=== PATIENT | female | born 1970 | race Caucasian/White ===

== ENCOUNTER 2016-05-17 13:05 | Emergency (ER) | payer OTHER ==
[2016-05-17] MEDS ORDERED: SODIUM CHLORIDE 1,000 ML IV SCH (14:00)
[2016-05-17 14:02] VITALS: BP 131/89; PULSE 67; TEMP 98.9; BMI 28.5
--- NOTE | 2016-05-17 14:13 | PDOC ---
History of Present Illness <Rolo Linder - Last Filed: 05/17/16 17:56> - History of Present Illness Initial Comments: 05/17/16 14:09 46-year-old female with a past medical history of appendectomy 2 years ago, chronic neck and back issues due to disc disease, and GERD Patient is complaining of a few days of feeling tired and lightheaded She then developed some right flank area pain rating around to her right abdomen , which she describes as a burning pain She denies any fever She denies any nausea vomiting or diarrhea She denies any cough or sputum She denies any urgency or frequency, but c/o sl dysuria She states that she did have one episode of diarrhea on Wednesday, but this has resolved She states the pain is not changed by musculoskeletal maneuvers She states that the pain is been pretty much constant for the past few days She denies any left-sided pain She denies any other complaints at this time, and the remainder of the review of systems is negative <Mayra Parnell - Last Filed: 05/19/16 07:43> - General Chief Complaint: Pain Stated Complaint: ABD, BACK PAIN Time Seen by Provider: 05/17/16 13:12 Past History <Rolo Linder - Last Filed: 05/17/16 17:56> - Past Medical History Thyroid Disease: No Other medical history: degenerative disc disease - Surgical History Appendectomy: Yes - Psycho/Social/Smoking Cessation Hx Anxiety: No Suicidal Ideation: No Smoking Status: No Smoking History: Never smoked Have you smoked in the past 12 months: Yes Number of Cigarettes Smoked Daily: 10 Information on smoking cessation initiated: Yes Hx Alcohol Use: No <Mayra Parnell - Last Filed: 05/19/16 07:43> - Past Medical History Allergies/Adverse Reactions: Allergies Allergy/AdvReac Type Severity Reaction Status Date / Time latex Allergy Verified 05/17/16 15:45 No Known Drug Allergies Allergy Verified 05/17/16 15:45 Home Medications: Ambulatory Orders Levofloxacin [Levaquin -] 500 mg PO DAILY #10 tablet 05/17/16 Review of Systems - Review of Systems Able to Perform ROS?: Yes Comments:: 05/17/16 14:10 12 point review of systems is as per history of present illness and otherwise negative <Mayra Parnell - Last Filed: 05/19/16 07:43> *Physical Exam - Vital Signs Last Vital Signs Temp Pulse Resp BP Pulse Ox 98.9 F 67 18 131/89 100 05/17/16 13:05 05/17/16 13:05 05/17/16 13:05 05/17/16 14:10 05/17/16 13:05 <Rolo Linder - Last Filed: 05/17/16 17:56> - Vital Signs Last Vital Signs Temp Pulse Resp BP Pulse Ox 98.9 F 67 18 131/89 100 05/17/16 13:05 05/17/16 13:05 05/17/16 13:05 05/17/16 13:05 05/17/16 13:05 - Physical Exam Comments: 05/17/16 14:11 Physical exam Last Vital Signs Temp Pulse Resp BP Pulse Ox 98.9 F 67 18 131/89 100 05/17/16 13:05 05/17/16 13:05 05/17/16 13:05 05/17/16 13:05 05/17/16 13:05 GENERAL: The patient is awake, alert, and fully oriented, and in no apparent distress. HEAD: Normal with no signs of trauma. EYES: sclera anicteric, conjunctiva are normal. ENT: Moist mucous membranes. NECK: Normal range of motion, supple LUNGS: Breath sounds equal, clear to auscultation bilaterally. No wheezes, and no crackles. HEART: Regular rate and rhythm, normal S1 and S2 without murmur, rub or gallop. ABDOMEN: There is one small skin lesion on the right flank area, but no evidence of shingles There is plus minus CVA tenderness on the right There is no left CVA tenderness There is diffuse right sided abdominal tenderness, without guarding or rebound There is no left-sided abdominal tenderness Normal bowel sounds are present in all quadrants EXTREMITIES: Normal range of motion, no edema. No clubbing or cyanosis. No cords, erythema, or tenderness. NEUROLOGICAL: Cranial nerves II through XII grossly intact. Normal speech, normal gait. PSYCH: Normal mood, normal affect. SKIN: Warm, Dry, normal turgor, no rashes or lesions noted. <Mayra Parnell - Last Filed: 05/19/16 07:43> ED Treatment Course - LABORATORY CBC & Chemistry Diagram: 05/17/16 14:10 05/17/16 14:10 - ADDITIONAL ORDERS Additional order review: Laboratory Results 05/17/16 05/17/16 05/17/16 14:10 14:10 14:10 Sodium 136 Potassium 3.6 Chloride 105 Carbon Dioxide 26 Anion Gap 5 L BUN 12 Creatinine 0.7 Creat Clearance w eGFR > 60 Random Glucose 107 H Calcium 9.0 Total Bilirubin 1.1 H AST 14 ALT 13 Alkaline Phosphatase 69 Total Protein 7.1 Albumin 4.2 Lipase 21 L Urine Color Yellow Urine Appearance Clear Urine pH 6.5 Ur Specific [place] 1.015 Urine Protein Negative Urine Glucose (UA) Negative Urine Ketones Negative Urine Blood 3+ H Urine Nitrite Negative Urine Bilirubin Negative Urine Urobilinogen 0.2 e.u/dl Ur Leukocyte Esterase Negative Urine RBC 10-20 Urine WBC 3-5 Ur Epithelial Cells 3+ Urine Bacteria 2+ Urine Casts Few Hyaline Casts 1+ Urine HCG, Qual Negative 05/17/16 14:10 RBC 4.67 MCV 90.9 MCHC 33.9 RDW 12.2 MPV 7.7 - RADIOLOGY Radiology Studies Ordered: 05/17/16 17:56 EXAM: CT ABDOMEN AND PELVIS WITH CONTRAST Small cystic foci right kidney. Heterogeneous right renal parenchyma, suspect artifact from adjacent oral contrast in colon more likely than pyelonephritis, but correlate clinically. No bowel obstruction, colitis, or free air. Normal short appendix versus appendiceal stump. Few diverticula colon. Unremarkable pancreas and gallbladder. Small physiologic free fluid cul-de-sac. Subcentimeter hepatic cysts or hemangiomas. Small umbilical hernia containing fat. Leiomyomatous uterus. THIS DOCUMENT HAS BEEN ELECTRONICALLY SIGNED Kaley Philippe M.D. 05/17/2016 17: 52 EST - Medications Given in the ED: ED Medications Discontinued Medications Generic Name Dose Route Start Last Admin Trade Name Freq PRN Reason Stop Dose Admin Ketorolac Tromethamine 30 mg 05/17/16 15:48 05/17/16 16:05 Toradol Injection - IVPUSH 05/17/16 15:49 30 mg ONCE ONE Administration <Rolo Linder - Last Filed: 05/17/16 17:56> - LABORATORY CBC & Chemistry Diagram: 05/17/16 14:10 05/17/16 14:10 - RADIOLOGY Radiology Studies Ordered: Category Date Time Status ABDOMEN & PELVIS CT WITH CONTR [CT] Stat CT Scan 05/17/16 13:54 Ordered CHEST PA & LAT [RAD] Stat Radiology 05/17/16 13:50 Taken <Mayra Parnell - Last Filed: 05/19/16 07:43> Medical Decision Making - Medical Decision Making 05/17/16 15:56 Laboratory Results - last 24 hr 05/17/16 05/17/16 05/17/16 14:10 14:10 14:10 WBC 9.3 RBC 4.67 Hgb 14.4 Hct 42.5 MCV 90.9 MCHC 33.9 RDW 12.2 Plt Count 243 D MPV 7.7 Sodium 136 Potassium 3.6 Chloride 105 Carbon Dioxide 26 Anion Gap 5 L BUN 12 Creatinine 0.7 Creat Clearance w eGFR > 60 Random Glucose 107 H Calcium 9.0 Total Bilirubin 1.1 H AST 14 ALT 13 Alkaline Phosphatase 69 Total Protein 7.1 Albumin 4.2 Lipase 21 L Urine Color Yellow Urine Appearance Clear Urine pH 6.5 Ur Specific [place] 1.015 Urine Protein Negative Urine Glucose (UA) Negative Urine Ketones Negative Urine Blood 3+ H Urine Nitrite Negative Urine Bilirubin Negative Urine Urobilinogen 0.2 e.u/dl Ur Leukocyte Esterase Negative Urine RBC 10-20 Urine WBC 3-5 Ur Epithelial Cells 3+ Urine Bacteria 2+ Urine Casts Few Hyaline Casts 1+ Urine HCG, Qual 05/17/16 14:10 WBC RBC Hgb Hct MCV MCHC RDW Plt Count MPV Sodium Potassium Chloride Carbon Dioxide Anion Gap BUN Creatinine Creat Clearance w eGFR Random Glucose Calcium Total Bilirubin AST ALT Alkaline Phosphatase Total Protein Albumin Lipase Urine Color Urine Appearance Urine pH Ur Specific [place] Urine Protein Urine Glucose (UA) Urine Ketones Urine Blood Urine Nitrite Urine Bilirubin Urine Urobilinogen Ur Leukocyte Esterase Urine RBC Urine WBC Ur Epithelial Cells Urine Bacteria Urine Casts Hyaline Casts Urine HCG, Qual Negative 05/17/16 18:37 CT scan of the abdomen and pelvis with oral and IV contrast - this is an IOC reading Heterogeneous right renal parenchyma, suspect artifact from adjacent oral contrast in the colon more likely than pyelonephritis, but correlate clinically Fibroid uterus Otherwise negative Impression-Flank pain, UTI, cannot rule out pyelonephritis Patient given 1 dose of Levaquin IV in the ER, urine culture sent, will discharge on antibiotics 05/19/16 07:[address] scan of the abdomen and pelvis as read by Dr. 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 <Rolo Linder - Last Filed: 05/17/16 17:56> <Mayra Parnell - Last Filed: 05/19/16 07:43> Diagnosis at time of Disposition: UTI (urinary tract infection), Flank pain - Discharge Dispostion Disposition: HOME Condition at time of disposition: Improved - Prescriptions Prescriptions: Levofloxacin [Levaquin -] 500 mg PO DAILY #10 tablet - Patient Instructions Printed Discharge Instructions: Urinary Tract Infection, DI for Kidney Infection Additional Instructions: Levaquin-one pill daily-start tomorrow, as you received her first dose intravenously here Increase fluid intake, and drink plenty of fluids Tylenol or Motrin for pain Followup with your primary care physician in 24-48 hours Return immediately if you worsen in any way Take your medications as directed - Post Discharge Activity Work/School Note: Back to Work
[2016-05-17 14:32] LABS: PH,URINE 6.5 (4.5-8); URINE APPEARANCE Clear; URINE BILIRUBIN Negative (NEGATIVE); URINE GLUCOSE (UA) Negative (NEGATIVE); URINE KETONE Negative (NEGATIVE); URINE LEUK ESTERASE Negative (NEGATIVE); URINE NITRITE Negative (NEGATIVE); URINE PROTEIN Negative (NEGATIVE); URINE UROBILINOGEN 0.2 E.U/dl (0.2-1.0)
[2016-05-17 14:36] LABS: MCH 30.8 pg (25.7-33.7); MCHC 33.9 g/dl (32.0-36.0); MEAN CELL VOLUME 90.9 fl (80-96); MEAN PLT VOLUME 7.7 fl (7.5-11.1); PLATELET COUNT 243 K/MM3 (134-434); RDW 12.2 % (11.6-15.6); WHITE BLOOD COUNT 9.3 K/mm3 (4.0-10.0)
[2016-05-17 14:41] LABS: URINE BLOOD 3+ (NEGATIVE); URINE COLOR YELLOW
[2016-05-17 14:48] LABS: ALBUMIN 4.2 g/dl (3.5-5.0); ALK PHOS 69 U/L (32-92); ANION GAP 5 (8-16); BILIRUBIN,TOTAL 1.1 mg/dl (0.2-1.0); CO2 26 mmol/L (22-28); CREATININE 0.7 mg/dl (0.6-1.3); GLUCOSE,RANDOM 107 mg/dl (74-106); SGOT/AST 14 U/L (10-42); SGPT/ALT 13 U/L (10-40); TOT PROT 7.1 g/dl (6.4-8.3)
[2016-05-17 15:45] LABS: URINE BACTERIA 2+ /hpf (NEGATIVE); URINE HYALINE CAST 1+ /lpf
[2016-05-17] MEDS ORDERED: KETOROLAC TROMETHAMINE 30 MG/1 ML VIAL IVPUSH ONE (15:48)
[2016-05-17] MEDS ORDERED: KETOROLAC TROMETHAMINE 30 MG/1 ML VIAL ONE (15:56)
[2016-05-17] MEDS ORDERED: LEVOFLOXACIN 500 MG IVPB 100 ML IVPB ONE ×2 (18:01→18:04)
== END 2016-05-17 19:05 | disposition home or self-care (01) ==
LOC: FER 13:05
PROC: 3E03329 Introduction of Other Anti-infective into Peripheral Vein, Percutaneous Approach (ICD-10-PCS; principal; 2016-05-17)
PROC: 3E033GC Introduction of Other Therapeutic Substance into Peripheral Vein, Percutaneous Approach (ICD-10-PCS; 2016-05-17)
PROC: 3E0337Z Introduction of Electrolytic and Water Balance Substance into Peripheral Vein, Percutaneous Approach (ICD-10-PCS; 2016-05-17)
DX: N39.0 Urinary tract infection, site not specified (principal); R10.31 Right lower quadrant pain; G89.29 Other chronic pain; K21.9 Gastro-esophageal reflux disease without esophagitis; F17.210 Nicotine dependence, cigarettes, uncomplicated
CPT/HCPCS: 36415; 71020-TC; 74177-TC; 80053; 81003; 81015; 83690; 84703; 85027; 87086; 99285-25

== ENCOUNTER 2021-12-15 06:20 | Emergency (ER) | payer BC, OTHER ==
[2021-12-15 06:32] VITALS: BP 147/85; PULSE 66; RESP 16; TEMP 97.9; BMI 29.2
[2021-12-15] MEDS ORDERED: IBUPROFEN 600 MG TABLET (FP) PO ONE (07:21)
== END 2021-12-15 08:33 | disposition home or self-care (01) ==
LOC: FER 06:20
DX: S99.911A Unspecified injury of right ankle, initial encounter (principal); X50.0XXA Overexertion from strenuous movement or load, initial encounter
CPT/HCPCS: 73610-TC-RT-FY; 73630-TC-RT-FY; 99284-25

== ENCOUNTER 2023-05-12 13:29 | Emergency (ER) | payer BC ==
[2023-05-12 13:43] VITALS: BP 109/78; PULSE 89; RESP 20; TEMP 99; BMI 30.2
[2023-05-12] MEDS: ALBUTEROL SO4 0.083% IH SOL 2.5 MG/3 ML VIAL.NEB. NEB STA (14:00)
[2023-05-12] MEDS ORDERED: ALBUTEROL SO4 2.5/IPRATROPIUM 0.5 INH SOL 3 ML VIAL.NEB. NEB ONE (14:07)
[2023-05-12] MEDS: ALBUTEROL SO4 HFA INHALER IH ONE (15:24)
[2023-05-12] MEDS ORDERED: ALBUTEROL SO4 HFA INHALER IH ONE (15:24)
== END 2023-05-12 15:55 | disposition home or self-care (01) ==
LOC: FER 13:29
PROC: 3E0F7GC Introduction of Other Therapeutic Substance into Respiratory Tract, Via Natural or Artificial Opening (ICD-10-PCS; principal; 2023-05-12)
DX: R05.9 Cough, unspecified (principal); R09.81 Nasal congestion; Z20.822 Contact with and (suspected) exposure to COVID-19
CPT/HCPCS: 0241U-QW; 99283-25

== ENCOUNTER 2023-11-08 08:48 | Emergency (ER) | payer BC ==
[2023-11-08 09:17] VITALS: TEMP 99.9; BMI 30.2
[2023-11-08] MEDS: SODIUM CHLORIDE 0.9% 500 ML INFUS.BAG IV ONE (09:42)
[2023-11-08] MEDS: ACETAMINOPHEN 1000 MG/100 ML BAG IVPB ONE (09:43)
[2023-11-08] MEDS: ONDANSETRON 4 MG/2 ML VIAL IVPUSH ONE (09:49)
[2023-11-08] MEDS ORDERED: ONDANSETRON 4 MG/2 ML VIAL ONE (09:50)
[2023-11-08] MEDS ORDERED: ACETAMINOPHEN INJECTION 100 ML ONE (09:50)
[2023-11-08 10:02] LABS: HEMATOCRIT 39.8 % (32.4-45.2); HEMOGLOBIN 13.1 G/dL (10.7-15.3); MCH 29.8 pg (25.7-33.7); MCHC 32.8 g/dl (32.0-36.0); MEAN CELL VOLUME 90.9 fl (80-96); MEAN PLT VOLUME 7.9 fl (7.5-11.1); PLATELET COUNT 162.3 10^3/uL (134-434); RBC 4.38 10^6/uL (3.60-5.2); RDW 13.9 % (11.6-15.6); WHITE BLOOD COUNT 8.6 10^3/uL (4.0-10.8)
[2023-11-08 10:05] LABS: HCG,QUALITATIVE URINE Negative
[2023-11-08 10:18] LABS: ALK PHOS 91 U/L (45-117); ANION GAP 6 mmol/L (4-13); BILIRUBIN,TOTAL 0.8 mg/dl (0.2-1); CALCIUM 9.3 mg/dl (8.5-10.1); CHLORIDE 102 mmol/L (98-107); CO2 28 mmol/L (21-32); CREATININE 0.6 mg/dl (0.6-1.3); GLUCOSE,RANDOM 92 mg/dl (74-106); POTASSIUM 3.9 mmol/L (3.5-5.1); SGOT/AST 10 U/L (15-37); SGPT/ALT 11 U/L (7-52); SODIUM 136 mmol/L (136-145); TOT PROT 6.6 g/dl (6.4-8.2)
[2023-11-08 10:38] LABS: PLATELET ESTIMATE ADEQUATE
[2023-11-08 12:08] VITALS: BP 106/67; PULSE 85; RESP 16
== END 2023-11-08 12:14 | disposition home or self-care (01) ==
LOC: FER 08:48
PROC: 3E033NZ Introduction of Analgesics, Hypnotics, Sedatives into Peripheral Vein, Percutaneous Approach (ICD-10-PCS; principal; 2023-11-08)
PROC: 3E033GC Introduction of Other Therapeutic Substance into Peripheral Vein, Percutaneous Approach (ICD-10-PCS; 2023-11-08)
DX: J18.9 Pneumonia, unspecified organism (principal); R11.0 Nausea; K59.00 Constipation, unspecified; R19.7 Diarrhea, unspecified; R10.11 Right upper quadrant pain; R05.9 Cough, unspecified; R06.02 Shortness of breath; M54.9 Dorsalgia, unspecified; Z20.822 Contact with and (suspected) exposure to COVID-19
CPT/HCPCS: 0241U-QW; 36415; 71046-TC-FY; 76705-TC; 80053; 81003; 81015; 83690; 84703; 85027; 87086; 99285-25; J0131